=== PATIENT | female | born 1970 | race Caucasian/White ===

== ENCOUNTER → 2016-12-11 | Outpatient (CLI) | payer OTHER ==
[~2016-12-11] MED LIST: KETOROLAC10 MG PO; PEPCID 20MG TAB20 MG PO
== END ==
LOC: MC.RAD 13:40
DX: Z12.31 Encounter for screening mammogram for malignant neoplasm of breast (principal)

== ENCOUNTER → 2017-12-16 | Outpatient (REF) | LOC: ZLAB.WCH 17:48 | DX: Z01.89 Encounter for other specified special examinations (principal) ==

== ENCOUNTER 2018-03-27 07:59 | Day surgery (SDC) | payer BC, OTHER ==
[~2018-03-27] VITALS: Ht 165.1 cm; Wt 62.5 kg
[2018-03-27 08:18] VITALS: BP 121/85; PULSE 68; TEMP 97
[2018-03-27 10:30] VITALS: BP 127/88; PULSE 78
[2018-03-27 10:45] VITALS: BP 123/78; PULSE 74
[2018-03-27 11:00] VITALS: BP 129/82; PULSE 66
[2018-03-27 11:14] VITALS: BP 132/78; PULSE 71
== END 2018-03-27 11:25 | disposition home or self-care (01) ==
LOC: SDCO 07:59
DX: K20.9 Esophagitis, unspecified (principal); K29.30 Chronic superficial gastritis without bleeding; R11.0 Nausea; K59.00 Constipation, unspecified
CPT/HCPCS: J2250; J2405; J3010; J7030

== ENCOUNTER → 2018-04-24 | Outpatient (CLI) | payer OTHER | LOC: COL.RAD 04-16 07:30 | DX: K82.8 Other specified diseases of gallbladder (principal); R14.0 Abdominal distension (gaseous) ==

== ENCOUNTER → 2018-05-08 | Outpatient (CLI) | payer OTHER | LOC: COL.RAD 06:24 | DX: R11.0 Nausea (principal); R10.13 Epigastric pain; R14.0 Abdominal distension (gaseous) | CPT/HCPCS: A9537 ==

== ENCOUNTER → 2020-04-13 | Outpatient (CLI) | payer OTHER | LOC: MC.RAD 16:29 | DX: Z12.31 Encounter for screening mammogram for malignant neoplasm of breast (principal); Z98.82 Breast implant status ==

== ENCOUNTER → 2024-01-27 | Outpatient (CLI) | payer BC ==
[~2024-01-27] MED LIST changes: +VITAMIND3 5000 PO
== END ==
LOC: MC.RAD 09:49
DX: Z12.31 Encounter for screening mammogram for malignant neoplasm of breast (principal); Z98.82 Breast implant status